=== PATIENT | female | born 1955 | race Caucasian/White ===

== ENCOUNTER 2023-02-13 17:35 | Emergency (ER) | payer MEDICAID, MEDICARE ==
[2023-02-13 19:35] LABS: #Monocytes 0.5 thou/uL (0.11-0.59); #Neutrophils 2.9 thou/uL (1.40-6.50); %Basophils 0.4 % (0.0-1.0); %Eosinophils 0.6 % (0.0-10.0); %Lymphocytes 33.6 % (21.0-51.0); %Neutrophils 55.2 % (42.0-75.0); Hematocrit 44.2 % (36.0-47.0); Hemoglobin 14.4 g/dL (12.0-16.0); Mean Corpuscular HGB CONC 32.6 g/dL (32.0-36.0); Mean Corpuscular Hemoglobin 30.6 pg (27.0-31.0); Mean Corpuscular Volume 93.8 fl (78.0-98.0); Platelet Count 161 10x3/uL (130-400); Red Blood Cell (RBC) Count 4.71 mill/uL (4.20-5.40); White Blood Cell (WBC) Count 5.3 10x3/uL (4.8-10.8)
[2023-02-13 19:58] LABS: Albumin 4.2 g/dL (3.4-4.8)
[2023-02-13 20:00] LABS: Calcium 9.6 mg/dL (7.8-10.44); Chloride 105 mmol/L (98-107); Potassium 4.2 mmol/L (3.5-5.1); Sodium 139 mmol/L (136-145)
[2023-02-13 20:01] LABS: Globulin 2.4 g/dL (2.4-3.5); Glucose 96 mg/dL (80-115); Protein, Total 6.6 g/dL (5.8-8.1)
[2023-02-13 20:02] LABS: Anion Gap 12 mmol/L (10-20); Carbon Dioxide 26 mmol/L (23-31)
[2023-02-13 20:03] LABS: Troponin I Less than 0.010 ng/mL (< 0.028)
[2023-02-13 20:04] LABS: Alkaline Phosphatase 92 U/L (40-110); Calc. Creatinine Clearance 0 mL/min (70-130); Estimated GFR 53
[2023-02-13 20:05] LABS: BUN (Urea Nitrogen) 16 mg/dL (9.8-20.1)
[2023-02-13 20:06] LABS: AST (SGOT) 13 U/L (5-34)
[2023-02-13 20:07] LABS: ALT (SGPT) 10 U/L (8-55); Lipase 31 U/L (8-78)
[2023-02-13 20:13] LABS: Bilirubin, Total 0.2 mg/dL (0.2-1.2)
[2023-02-13] MEDS ORDERED: hydrALAZINE 25 MG TAB ONE (21:25)
== END 2023-02-13 22:28 | disposition home or self-care (01) ==
LOC: ERS 17:35
DX: I10 Essential (primary) hypertension (principal); F17.210 Nicotine dependence, cigarettes, uncomplicated
CPT/HCPCS: 36415; 70450; 71045; 80053; 83690; 84484; 85025; 93005

== ENCOUNTER 2023-03-15 12:09 | Emergency (ER) | payer MEDICARE | END 2023-03-15 13:48 | disposition home or self-care (01) | LOC: ERS 12:09 | DX: I87.8 Other specified disorders of veins (principal); F17.210 Nicotine dependence, cigarettes, uncomplicated; J44.9 Chronic obstructive pulmonary disease, unspecified; E78.00 Pure hypercholesterolemia, unspecified; I12.9 Hypertensive chronic kidney disease with stage 1 through stage 4 chronic kidney disease, or unspecified chronic kidney disease; N18.30 Chronic kidney disease, stage 3 unspecified; Z79.899 Other long term (current) drug therapy; M79.89 Other specified soft tissue disorders ==

== ENCOUNTER 2024-12-16 14:36 | Outpatient (CLI) | payer MEDICARE, MEDICAID | END 2024-12-16 14:37 | disposition home or self-care (01) | LOC: BICRAD 14:36 | PROVIDERS: ATTEND Nurse Practitioner Family | DX: S20.01XD Contusion of right breast, subsequent encounter (principal) ==

== ENCOUNTER 2025-04-01 07:36 | Inpatient (IN) | payer MEDICARE, MEDICAID ==
[2025-04-01 07:56] LABS: #Basophils Less than 0.03 10x3/uL (0.0-0.2); #Eosinophils Less than 0.03 10x3/uL (0.0-0.7); #Monocytes 0.47 10x3/uL (0.11-0.59); #Neutrophils 7.29 10x3/uL (1.40-6.50); %Basophils 0.2 % (0.0-1.0); %Eosinophils 0.0 % (0.0-10.0); %Lymphocytes 16.5 % (21.0-51.0); %Monocytes 5.0 % (0.0-10.0); %Neutrophils 78.1 % (42.0-75.0); Hematocrit 46.6 % (36.0-47.0); Hemoglobin 14.4 g/dL (12.0-16.0); Mean Corpuscular Hemoglobin 28.6 pg (27.0-31.0); Mean Corpuscular Volume 92.5 fL (78.0-98.0); Platelet Count 139 10x3/uL (130-400); Red Blood Cell (RBC) Count 5.04 mill/uL (4.20-5.40); White Blood Cell (WBC) Count 9.34 10x3/uL (4.8-10.8)
[2025-04-01 08:30] LABS: ALT (SGPT) 9 U/L (Less than 34); AST (SGOT) 25 U/L (11-34); Albumin 3.5 g/dL (3.1-4.5); Alkaline Phosphatase 100 U/L (40-110); Anion Gap 17 mmol/L (10-20); BUN (Urea Nitrogen) 12 mg/dL (9.8-20.1); Bilirubin, Total 0.3 mg/dL (0.3-1.2); Calc. Creatinine Clearance 0 mL/min (70-130); Calcium 9.3 mg/dL (7.8-10.44); Carbon Dioxide 25 mmol/L (23-31); Chloride 101 mmol/L (98-107); Globulin 3.9 g/dL (2.4-3.5); Glucose 126 mg/dL (83-110); Potassium 3.9 mmol/L (3.5-5.1); Sodium 139 mmol/L (136-145)
[2025-04-01] MEDS ORDERED: Ondansetron PF 4 MG/2 ML Vial IVP PRN (12:12)
[2025-04-01] MEDS ORDERED: Melatonin 3 MG TAB PO PRN (12:12)
[2025-04-01] MEDS ORDERED: Senokot S 8.6-50 MG TAB PO PRN (12:12)
[2025-04-01] MEDS ORDERED: Albuterol 2.5 MG (3 mL) NEB NEB PRN (12:12)
[2025-04-01] MEDS ORDERED: cefTRIAXone (ROCEPHIN) 1 GM VIAL ONE (12:50)
[2025-04-01] MEDS ORDERED: Azithromycin 500 MG VIAL ONE (12:50)
[2025-04-01] MEDS: Benzonatate 100 MG CAP PO SCH (14:26)
[2025-04-01] MEDS: Acetaminophen 325 MG TAB PO SCH (14:26)
[2025-04-01] MEDS: Atenolol 25 MG TAB PO SCH (19:59)
[2025-04-01] MEDS: Famotidine/PF 20 mg/2ml Vial SLOW IVP SCH (20:00)
[2025-04-01] MEDS: Guaifenesin DM 100-10/5 ML UDCUP PO PRN (20:03)
[2025-04-02 05:47] LABS: #Basophils Less than 0.03 10x3/uL (0.0-0.2); #Eosinophils Less than 0.03 10x3/uL (0.0-0.7); #Monocytes 0.31 10x3/uL (0.11-0.59); #Neutrophils 10.28 10x3/uL (1.40-6.50); %Basophils 0.2 % (0.0-1.0); %Eosinophils 0.0 % (0.0-10.0); %Lymphocytes 8.0 % (21.0-51.0); %Monocytes 2.7 % (0.0-10.0); %Neutrophils 88.8 % (42.0-75.0); Hematocrit 43.7 % (36.0-47.0); Hemoglobin 14.1 g/dL (12.0-16.0); Mean Corpuscular Hemoglobin 29.4 pg (27.0-31.0); Mean Corpuscular Volume 91.2 fL (78.0-98.0); Platelet Count 124 10x3/uL (130-400); Red Blood Cell (RBC) Count 4.79 mill/uL (4.20-5.40); White Blood Cell (WBC) Count 11.56 10x3/uL (4.8-10.8)
[2025-04-02 06:05] LABS: Anion Gap 13 mmol/L (10-20); BUN (Urea Nitrogen) 20 mg/dL (9.8-20.1); Calc. Creatinine Clearance 50 mL/min (70-130); Calcium 9.3 mg/dL (7.8-10.44); Carbon Dioxide 27 mmol/L (23-31); Chloride 101 mmol/L (98-107); Glucose 158 mg/dL (83-110); Potassium 4.0 mmol/L (3.5-5.1); Sodium 137 mmol/L (136-145)
[2025-04-02] MEDS ORDERED: Cyclobenzaprine 10 MG TAB PO PRN (07:55)
[2025-04-02] MEDS: Gabapentin 300 MG CAP PO SCH (08:47)
[2025-04-02] MEDS: Aspirin 81 mg Enteric Coated Tablet PO SCH (08:48)
[2025-04-02] MEDS: Atenolol 25 MG TAB PO SCH (08:48)
[2025-04-02] MEDS: Pantoprazole 40 MG DR.TAB PO SCH (08:48)
[2025-04-02] MEDS: Enoxaparin 40 MG (0.4 mL) SYRINGE SC SCH (08:49)
[2025-04-02 10:45] LABS: Strep pneumo Urine Ag NEGATIVE (NEGATIVE)
[2025-04-02] MEDS: Furosemide 40 MG (4 mL) VIAL SLOW IVP SCH (15:28)
[2025-04-03 05:40] LABS: #Basophils 0.03 10x3/uL (0.0-0.2); #Eosinophils Less than 0.03 10x3/uL (0.0-0.7); #Monocytes 0.52 10x3/uL (0.11-0.59); #Neutrophils 12.60 10x3/uL (1.40-6.50); %Basophils 0.2 % (0.0-1.0); %Eosinophils 0.0 % (0.0-10.0); %Lymphocytes 7.8 % (21.0-51.0); %Monocytes 3.6 % (0.0-10.0); %Neutrophils 87.1 % (42.0-75.0); Hematocrit 45.4 % (36.0-47.0); Hemoglobin 14.5 g/dL (12.0-16.0); Mean Corpuscular Hemoglobin 28.9 pg (27.0-31.0); Mean Corpuscular Volume 90.4 fL (78.0-98.0); Platelet Count 157 10x3/uL (130-400); Red Blood Cell (RBC) Count 5.02 mill/uL (4.20-5.40); White Blood Cell (WBC) Count 14.47 10x3/uL (4.8-10.8)
[2025-04-03 06:02] LABS: Anion Gap 18 mmol/L (10-20); BUN (Urea Nitrogen) 35 mg/dL (9.8-20.1); Calc. Creatinine Clearance 41 mL/min (70-130); Calcium 9.8 mg/dL (7.8-10.44); Carbon Dioxide 26 mmol/L (23-31); Chloride 101 mmol/L (98-107); Glucose 135 mg/dL (83-110); Magnesium 2.0 mg/dL (1.6-2.6); Potassium 4.9 mmol/L (3.5-5.1); Sodium 140 mmol/L (136-145)
[2025-04-03] MEDS: cloNIDine 0.1 MG TAB PO PRN (12:14)
[2025-04-03 13:28] VITALS: BMI 22.6
[2025-04-03] MEDS: Fioricet 325/50/40 mg Tablet PO PRN (21:59)
[2025-04-04 05:54] LABS: Hematocrit 45.6 % (36.0-47.0); Hemoglobin 14.6 g/dL (12.0-16.0); Mean Corpuscular Hemoglobin 28.7 pg (27.0-31.0); Mean Corpuscular Volume 89.8 fL (78.0-98.0); Platelet Count 178 10x3/uL (130-400); Red Blood Cell (RBC) Count 5.08 mill/uL (4.20-5.40); White Blood Cell (WBC) Count 14.22 10x3/uL (4.8-10.8)
[2025-04-04 06:14] LABS: Anion Gap 17 mmol/L (10-20); BUN (Urea Nitrogen) 34 mg/dL (9.8-20.1); Calc. Creatinine Clearance 40 mL/min (70-130); Calcium 9.4 mg/dL (7.8-10.44); Carbon Dioxide 28 mmol/L (23-31); Chloride 99 mmol/L (98-107); Glucose 127 mg/dL (83-110); Potassium 4.1 mmol/L (3.5-5.1); Sodium 140 mmol/L (136-145)
[2025-04-04 06:24] LABS: Platelet Adequacy Comment Platelets Normal; RBC Morphology Within Normal Limits; Smudge Cells 1.0 %
[2025-04-04 11:34] VITALS: TEMP 97.8
[2025-04-04] MEDS: Nystatin 500,000 UNITS/5 ML UDCUP SSW SCH (11:51)
[2025-04-04 13:34] VITALS: BP 160/72
== END 2025-04-04 13:45 | disposition home or self-care (01) | DRG 177 ==
LOC: ERS 07:36 → OBS 12:12 → OBSVTOIN 04-02 09:13
PROVIDERS: ADMIT Hospitalist; ATTEND Family Medicine
DX: J15.69 Pneumonia due to other Gram-negative bacteria (principal); I50.33 Acute on chronic diastolic (congestive) heart failure; J96.21 Acute and chronic respiratory failure with hypoxia; J44.1 Chronic obstructive pulmonary disease with (acute) exacerbation; J12.1 Respiratory syncytial virus pneumonia; Z90.710 Acquired absence of both cervix and uterus; Z98.890 Other specified postprocedural states; F17.200 Nicotine dependence, unspecified, uncomplicated; I11.0 Hypertensive heart disease with heart failure; Z99.81 Dependence on supplemental oxygen; K21.9 Gastro-esophageal reflux disease without esophagitis
CPT/HCPCS: 36415; 71045; 80048; 80053; 83735; 83880; 84145; 84484; 85025; 87040; 87070; 87077; 87205; 87428; 87633; 87798; 87899; 93005; 93306; 94640; 96372; 96374; 96375; G0378; J0456; J0696; J1308; J1650; J1940; J2919; J7050